=== PATIENT | female | born 1970 | race Caucasian/White ===

== ENCOUNTER → 2021-05-12 | Outpatient (CLI) | payer OTHER ==
[~2021-05-12] MED LIST: FLAX100017 PO; LABE100T5 PO; LORA10TA68 PO; METF500T16 PO; MULT-245 PO; VENL37.5 PO
--- NOTE | 2021-05-12 13:34 | RAD ---
Exam Date: 05/12/2021 9:31 AM XR KNEE 1-2 VIEWS Indication: Reason: BILATERAL KNEE PAIN / Spl. Instructions: / History: . FINDINGS/ IMPRESSION: Small osteophytes are noted bilaterally. No acute fracture or dislocation. Alignment and joint spaces are maintained. The soft tissues are w ithin normal limits. Electronically signed by: Alvin Mcintosh MD (05/12/2021 1:31 PM) [id number]
--- NOTE | 2021-05-12 13:35 | RAD ---
Exam Date: 05/12/2021 9:31 AM XR BILATERAL HIP (WITH OR WITHOUT PELVIS) 2 VIEWS_RIGHT Indication: Reason: BILATERAL KNEE PAIN. RIGHT HIP PAIN. / Spl. Instructions: / History: . FINDINGS/ IMPRESSION: Severe qdnr-ej-cruy joint space narrowing is seen in the hips bilaterally, with prominent subchondral sclerotic and cystic changes and large osteophytes. Alignment is maintained. No acute fracture or dislocation. Degenerative changes are seen in the lower lumbar spine and SI joints. Soft tissues ar e normal. Electronically signed by: Alvin Mcintosh MD (05/12/2021 1:32 PM) [id number]
== END ==
LOC: RAD 09:14
PROVIDERS: ATTEND Family Medicine
DX: Z02.71 Encounter for disability determination (principal); M47.816 Spondylosis without myelopathy or radiculopathy, lumbar region; M25.851 Other specified joint disorders, right hip; M25.852 Other specified joint disorders, left hip; M25.551 Pain in right hip
CPT/HCPCS: 73502; 73560-50